=== PATIENT | female | born 1995 | race Caucasian/White ===

== ENCOUNTER 2022-04-30 18:52 | Observation (INO) | payer MEDICAID, SELFPAY ==
[2022-04-30 18:53] VITALS: BP 103/73; PULSE 85; RESP 16; TEMP 36.4; O2SAT 98; BMI 26.7
--- NOTE | 2022-04-30 19:04 | EX.ED.SAOD ---
HPI History of Present Illness Chief Complaint: Substance Abuse Informant: patient Narrative Narrative: Patient seeking detox from IV opiates, has been using daily for the last 2.5 months. Here with her significant other who has been using for longer. She denies any suicidality, recent illness, injury. She is feeling some mild withdrawal symptoms, feeling like she is sweating, last use was this morning around 10 hours ago. She denies using other substances. No that she knows of. [facility] Medical History (Updated 04/30/22 @ 19:[address] Arthur Whitlock MD) Opiate abuse, continuous Home Medications venlafaxine 37.5 mg tablet 37.5 mg PO DAILY 04/30/22 [History Last Taken Unknown] Allergy/AdvReac Type Severity Reaction Status Date / Time No Known Allergies Allergy Verified 04/30/22 18:55 Social History (Updated 04/30/22 @ 19:[address] Arthur Whitlock MD) Smoking Status: Current some day smoker tobacco type: cigarettes substance use type: heroin and IV drugs ROS ROS ED Constitutional Constitutional ED: Reports sweats; Denies chills or fever(s) Eyes Eyes: Denies change in vision or diplopia ENT ENT ED: Denies rhinorrhea or sore throat Cardiovascular Cardiovascular: Denies chest pain or palpitations Respiratory/Chest Respiratory/Chest: Denies cough or dyspnea Gastrointestinal Gastrointestinal: Denies abdominal pain, diarrhea, nausea or vomiting Genitourinary Genitourinary ED: Denies dysuria or hematuria Musculoskeletal Musculoskeletal: Denies back pain or neck pain Integumentary Denies abscess or rash Neurologic Neurologic: Denies headache(s), paresthesias or weakness Psychiatric Psychiatric: Reports anxiety; Denies suicidal thoughts EXAM Physical Exam Const Vital Signs: 04/30/22 18:53 04/30/22 19:47 Temperature 97.5 F L 98.5 F Temperature Source Temporal Oral Pulse Rate 85 65 Respiratory Rate 16 16 Blood Pressure 103/73 99/61 Blood Pressure Mean 83 73 Pulse Ox 98 96 Oxygen Delivery Method Room Air Room Air Positive well nourished and well developed General Appearance ED: well developed and NAD HEENT Reports moist mucous membranes normocephalic and atraumatic Eyes PERRL and EOMs intact bilaterally Neck full ROM and supple Resp normal respiratory effort and clear to auscultation bilaterally Cardio regular rate, regular rhythm and no murmurs Rate: Negative for tachycardic GI non-tender and non-distended Auscultation: normoactive bowel sounds Palpation: soft Back/Spine no CVA tenderness General Back: other FROM Extremity normal to inspection General Extremety ED: Negative for edema, pulses abnormal or tenderness General Extremity: Negative for edema or pulses abnormal Neuro oriented x3, CN's II-XII intact bilaterally and no sensory deficits noted Sensorium / Orientation: awake and alert Motor Exam: strength 5/5 throughout Skin no rashes or lesions noted and no wounds MDM MDM Lab Data Attestation: I reviewed the patient's lab results. Labs: Laboratory Results - last 24 hr 04/30/22 04/30/22 04/30/22 19:15 19:15 19:15 WBC 7.0 RBC 4.81 Hgb 13.7 Hct 41.1 MCV 85.4 MCH 28.5 MCHC 33.3 RDW Std Deviation 36.8 RDW Coeff of Margaret 11.8 Plt Count 212 MPV 10.3 Immature Gran % (Auto) 0.300 Neut % (Auto) 57.6 Lymph % (Auto) 29.9 [place] % (Auto) 7.6 Eos % (Auto) 4.3 Baso % (Auto) 0.3 Absolute Neuts (auto) 4.0 Absolute Lymphs (auto) 2.08 Nucleated RBC % 0 Sodium 139 Potassium 3.9 Chloride 104 Carbon Dioxide 28.0 Anion Gap 7 BUN 16 Creatinine 0.67 Estim Creat Clear Calc 90.59 Est GFR (MDRD) Af Amer 135 Est GFR (MDRD) Non-Af 111 BUN/Creatinine Ratio 23.8 H Glucose 97 Calcium 9.2 Total Bilirubin 0.40 AST 20 ALT 25 Alkaline Phosphatase 75 Total Protein 7.8 Albumin 3.8 Globulin 4.0 Albumin/Globulin Ratio 1.0 Serum , Qual Urine Opiates Screen Urine Methadone Screen Ur Barbiturates Screen Ur Phencyclidine Scrn Ur Amphetamines Screen MDMA (Ecstasy) Screen U Benzodiazepines Scrn Urine Cocaine Screen U Cannabinoids Screen Ur Drug Screen Comment Ethyl Alcohol < 3.0 04/30/22 04/30/22 19:15 19:15 WBC RBC Hgb Hct MCV MCH MCHC RDW Std Deviation RDW Coeff of Margaret Plt Count MPV Immature Gran % (Auto) Neut % (Auto) Lymph % (Auto) Graham % (Auto) Eos % (Auto) Baso % (Auto) Absolute Neuts (auto) Absolute Lymphs (auto) Nucleated RBC % Sodium Potassium Chloride Carbon Dioxide Anion Gap BUN Creatinine Estim Creat Clear Calc Est GFR (MDRD) Af Amer Est GFR (MDRD) Non-Af BUN/Creatinine Ratio Glucose Calcium Total Bilirubin AST ALT Alkaline Phosphatase Total Protein Albumin Globulin Albumin/Globulin Ratio Serum , Qual NEGATIVE Urine Opiates Screen POSITIVE H Urine Methadone Screen NEGATIVE Ur Barbiturates Screen NEGATIVE Ur Phencyclidine Scrn NEGATIVE Ur Amphetamines Screen NEGATIVE MDMA (Ecstasy) Screen POSITIVE H U Benzodiazepines Scrn NEGATIVE Urine Cocaine Screen NEGATIVE U Cannabinoids Screen POSITIVE H Ur Drug Screen Comment Ethyl Alcohol Discharge Plan Dx/Rx/DC Orders Clinical Impression: Opiate dependence Disposition Disposition: Acute Care Hospital [facility]
[2022-04-30 19:25] LABS: Absolute Lymphocyte Count 2.08 X10^3/uL (0.83-4.51); Basophil# 0.02 X10^3/uL; Basophil% 0.3 % (0-1); Eosinophils% 4.3 % (0-5); Hematocrit 41.1 % (37-47); Hemoglobin 13.7 g/dL (12.0-15.0); Lymphocyte # 2.08 X10^3/ul (0.83-4.51); Lymphocyte % 29.9 % (19-41); Mean Corp Hgb Conc 33.3 g/dL (32-36); Mean Corpuscular Hgb 28.5 pg (27.0-32.0); Mean Corpuscular Volume 85.4 fL (81-99); Mean Platelet Vol. 10.3 fl (6.2-12.0); Monocyte# 0.53 X10^3/uL; Monocyte% 7.6 % (0-10); NRBC Flagged by Analyzer 0 % (0-5); Neutrophil % 57.6 % (47-70); Platelet Count 212 K/mm3 (150-450); RBC Distribution Width CV 11.8 % (11.6-14.6); RBC Distribution Width SD 36.8 fl (35.1-43.9); Red Blood Count 4.81 M/mm3 (4.2-5.4)
[2022-04-30 19:47] VITALS: BP 99/61; PULSE 65; RESP 16; TEMP 36.9; O2SAT 96
[2022-04-30 19:47] LABS: Alcohol, Blood (Medical)-Serum < 3.0 mg/dL
[2022-04-30 19:52] LABS: AST(SGOT) 20 U/L (15-37); Alanine Aminotransfer ALT/SGPT 25 U/L (13-56); Albumin, Serum 3.8 g/dL (3.2-5.0); Alkaline Phosphatase 75 U/L (45-117); Anion Gap 7 (5-15); BUN 16 mg/dL (7-18); BUN/Creat Ratio 23.8 RATIO (10-20); Calcium,Total 9.2 mg/dL (8.5-10.1); Chloride 104 mmol/L (98-107); Creatinine, Serum 0.67 mg/dL (0.55-1.02); EST Glomerular Filtration Rate 111 mL/min (>60); Est Glom Filt Rate - Afr Amer 135 mL/min (>60); Estimated Creatinine Clearance 90.59 ml/min; Glucose 97 mg/dL (74-106); Potassium 3.9 mmol/L (3.5-5.1); Protein, Total 7.8 g/dL (6.4-8.2); Sodium Level 139 mmol/L (136-145)
[2022-04-30 20:00] LABS: Amphetamine Urine VISTA NEGATIVE (<1000 ng/mL); Barbiturate Urine VISTA NEGATIVE (< 200 ng/mL); Benzodiazepine Urine VISTA NEGATIVE (< 200 ng/mL); Cocaine Urine VISTA NEGATIVE (< 300 ng/mL); Ecstacy Urine VISTA POSITIVE (< 500 ng/mL); Methadone Urine VISTA NEGATIVE (< 300 ng/mL); PCP Urine VISTA NEGATIVE (< 25 ng/mL); THC Urine VISTA POSITIVE (< 50 ng/mL); Vista UDS pH Range 5
[2022-04-30 20:06] LABS: Internal QC Validated? YES +Cl - CLEAR BKGD; Pregnancy, Serum, hCG Quali. NEGATIVE Negative
--- NOTE | 2022-04-30 20:21 | PCM.HP.STD ---
HPI - General General Date of Admission: 04/30/22 Date of Service: 04/30/22 Chief Complaint: Desire for detoxification HPI Narrative DIANNE POE, is a 26 F with a significant history of tobacco abuse; marijuana abuse; migraine headaches; depression; and anxiety who presents to the emergency department with help for opioid detoxification. Reportedly patient has been abusing opioids on and off for about 10 years. Her drug of choice is fentanyl that she shoots. She use about half a gram to a gram per day. She resumed using opioids about 2 months ago. Last time she used was about 8 and half hours prior to presentation. Patient reports mild withdrawal symptoms of feeling hot and diaphoresis. Patient is here for joint detoxification with her fianc?. [facility] Medical History Opiate abuse, continuous Home Medications venlafaxine 37.5 mg tablet 37.5 mg PO DAILY 04/30/22 [History Last Taken Unknown] Allergy/AdvReac Type Severity Reaction Status Date / Time No Known Allergies Allergy Verified 04/30/22 18:55 Family History (Updated 04/30/22 @ 20:[address] Artemio Collins MD) Other ALS (amyotrophic lateral sclerosis) Heart disease Hypertension no surgical history Social History Smoking Status: Current some day smoker tobacco type: cigarettes substance use type: heroin and IV drugs ROS ROS Narrative Pertinent positives and pertinent negatives as noted in HPI. All other systems were reviewed and are negative Vital Signs Vital Signs Vital Signs: 04/30/22 18:53 04/30/22 19:47 Temperature 97.5 F L 98.5 F Temperature Source Temporal Oral Pulse Rate 85 65 Respiratory Rate 16 16 Blood Pressure 103/73 99/61 Blood Pressure Mean 83 73 Pulse Ox 98 96 Oxygen Delivery Method Room Air Room Air Weight Weight: 62.142 kg Body Mass Index (BMI) 26.7 Physical Exam Narrative Physical exam: General: Well-nourished, well-developed. Head: Normocephalic, atraumatic, no tenderness Eyes: Vision is grossly intact. EOMI ENT, no trauma, moist mucous membranes, no rhinorrhea Neck: Nontender, full range of motion, no spinal tenderness, deformities, step-off CVS: Regular rate and rhythm. S1-S2 present. No murmur, gallop or rub. Respiratory : clear to auscultation bilaterally, chest wall nontender, no wheezing Abdomen: Soft, nontender, nondistended, normal bowel sounds, no masses : Deferred Back: Nontender, no CVA tenderness, no midline spinal tenderness, deformities, step-offs Extremities: Nontender full range of motion, no trauma Skin: Normal color, no trauma, abrasions Neuro: Alert, oriented, cranial nerves II through XII grossly intact. Psychiatry: Normal mood. Normal affect. Not depressed. Not anxious. Results Lab / Micro Data Result Diagrams: 04/30/22 19:15 04/30/22 19:15 Labs: Laboratory Results - last 24 hr 04/30/22 19:15: WBC 7.0, RBC 4.81, Hgb 13.7, Hct 41.1, MCV 85.4, MCH 28.5, MCHC 33.3, RDW Std Deviation 36.8, RDW Coeff of Margaret 11.8, Plt Count 212, MPV 10.3, Immature Gran % (Auto) 0.300, Neut % (Auto) 57.6, Lymph % (Auto) 29.9, [place] % (Auto) 7.6, Eos % (Auto) 4.3, Baso % (Auto) 0.3, Absolute Neuts (auto) 4.0, Absolute Lymphs (auto) 2.08, Nucleated RBC % 0 04/30/22 19:15: Sodium 139, Potassium 3.9, Chloride 104, Carbon Dioxide 28.0, Anion Gap 7, BUN 16, Creatinine 0.67, Estim Creat Clear Calc 90.59, Est GFR (MDRD) Af Amer 135, Est GFR (MDRD) Non-Af 111, BUN/Creatinine Ratio 23.8 H, Glucose 97, Calcium 9.2, Total Bilirubin 0.40, AST 20, ALT 25, Alkaline Phosphatase 75, Total Protein 7.8, Albumin 3.8, Globulin 4.0, Albumin/Globulin Ratio 1.0 04/30/22 19:15: Ethyl Alcohol < 3.0 04/30/22 19:15: Urine Opiates Screen POSITIVE H, Urine Methadone Screen NEGATIVE, Ur Barbiturates Screen NEGATIVE, Ur Phencyclidine Scrn NEGATIVE, Ur Amphetamines Screen NEGATIVE, MDMA (Ecstasy) Screen POSITIVE H, U Benzodiazepines Scrn NEGATIVE, Urine Cocaine Screen NEGATIVE, U Cannabinoids Screen POSITIVE H, Ur Drug Screen Comment 04/30/22 19:15: Serum , Qual NEGATIVE Assessment & Plan Assessment/Plan (1) Opiate dependence: (2) Tobacco abuse: PLAN: Plan Opioid dependence and withdrawal Urine toxicology was positive for opiates; ecstasy and cannabinoids. Patient be started on Subutex and other adjunctive medications: Gabapentin as needed; dicyclomine as needed; Vistaril as needed; methocarbamol as needed; clonidine as needed; Imodium as needed; trazodone as needed and Zofran as needed. Monitor COWS and CINA score Tobacco abuse Counseled Decline nicotine patch prescribed. Marijuana use Counseled. DVT prophylaxis Low risk Encourage to ambulate Charges/Coding Visit Charges Inpatient E&M: 48388 Init Hosp L2
[2022-04-30 21:25] VITALS: BMI 27.1
[2022-04-30 21:26] VITALS: BP 95/64; PULSE 60; RESP 18; TEMP 36.2; O2SAT 99
[2022-05-01] VITALS (8 sets, daily range): BP systolic 78–124; BP diastolic 42–81; PULSE 57–70; RESP 16–18; TEMP 36.4–37.1; O2SAT 96–100
[2022-05-01] MEDS: Senna/Docusate Sodium 1 Tablet 2 TABLET PO ×2 (05:30→16:35)
--- NOTE | 2022-05-01 07:23 | PN.HOSP_ITS ---
Subjective Subjective Feels unwell. Objective Data Objective Data Vital Signs: Vital Signs Temp Pulse Resp BP Pulse Ox O2 Del Method 37.1 C 61 16 89/52 L 97 Room Air 05/01/22 06:30 05/01/22 06:30 05/01/22 06:30 05/01/22 06:30 05/01/22 06:30 05/01/22 06:30 Oxygen Delivery Method Room Air Weight: 63 kg Body Mass Index (BMI) 27.1 Intake & Output: Intake and Output for Last 24 Hours 04/29/22 04/30/22 05/01/22 23:59 23:59 23:59 Output Total 0 / 0 Balance 0 / 0 Lab / Micro Data Result Diagrams: 04/30/22 19:15 04/30/22 19:15 Labs: Laboratory Results - last 24 hr 04/30/22 19:15: WBC 7.0, RBC 4.81, Hgb 13.7, Hct 41.1, MCV 85.4, MCH 28.5, MCHC 33.3, RDW Std Deviation 36.8, RDW Coeff of Margaret 11.8, Plt Count 212, MPV 10.3, Immature Gran % (Auto) 0.300, Neut % (Auto) 57.6, Lymph % (Auto) 29.9, [place] % (Auto) 7.6, Eos % (Auto) 4.3, Baso % (Auto) 0.3, Absolute Neuts (auto) 4.0, Absolute Lymphs (auto) 2.08, Nucleated RBC % 0 04/30/22 19:15: Sodium 139, Potassium 3.9, Chloride 104, Carbon Dioxide 28.0, Anion Gap 7, BUN 16, Creatinine 0.67, Estim Creat Clear Calc 90.59, Est GFR (MDRD) Af Amer 135, Est GFR (MDRD) Non-Af 111, BUN/Creatinine Ratio 23.8 H, Glucose 97, Calcium 9.2, Total Bilirubin 0.40, AST 20, ALT 25, Alkaline Phosphatase 75, Total Protein 7.8, Albumin 3.8, Globulin 4.0, Albumin/Globulin Ratio 1.0 04/30/22 19:15: Ethyl Alcohol < 3.0 04/30/22 19:15: Urine Opiates Screen POSITIVE H, Urine Methadone Screen NEGATIVE, Ur Barbiturates Screen NEGATIVE, Ur Phencyclidine Scrn NEGATIVE, Ur Amphetamines Screen NEGATIVE, MDMA (Ecstasy) Screen POSITIVE H, U Benzodiazepines Scrn NEGATIVE, Urine Cocaine Screen NEGATIVE, U Cannabinoids Screen POSITIVE H, Ur Drug Screen Comment 04/30/22 19:15: Serum , Qual NEGATIVE Physical Exam Const alert and no apparent distress Resp normal respiratory effort, no retractions and no use of accessory muscles Cardio regular rate, regular rhythm, S1 normal heart sound and S2 normal heart sound GI normal to inspection, nondistended, normoactive bowel sounds, soft to palpation and non-tender Assessment & Plan Assessment/Plan (1) Opiate dependence: PLAN: Opioid dependence and withdrawal Urine toxicology was positive for opiates; MDMA and cannabinoids. Patient be started on Subutex and other adjunctive medications: Gabapentin as needed; dicyclomine as needed; Vistaril as needed; methocarbamol as needed; clonidine as needed; Imodium as needed; trazodone as needed and Zofran as nee ded. Monitor COWS and CINA score Polysubstance abuse we will be complicating factor in regards to patient remaining sober. (2) Tobacco abuse: PLAN: Tobacco abuse Counseled Decline nicotine patch prescribed. PLAN: Plan DVT prophylaxis: not indicated as pt is low risk. Encourage to ambulate Charges/Coding Visit Charges Inpatient E&M: 72449 Subs Hosp L2
[2022-05-01] MEDS: Venlafaxine XR 37.5 MG Capsule PO (08:27)
--- NOTE | 2022-05-01 08:33 | CASEMGMT ---
DENY called [facility] duplication specialist. DENY let [facility] know that patient is here for RAMP program and is on PCU. [facility] will see patient today. Riya Pollack DELIVERY OF SHOPPING NEWSShayan MONAHAN
--- NOTE | 2022-05-01 10:27 | ADDICTION ---
This show card writer met with PT to conduct ASAM, MSE, AUDIT, DUDIT assessments and to plan for d/c. PT A+Ox4 and participated actively. All assessments completed and placed in PT's chart. PT plans to f/u with [facility] in [place] for outpatient treatment services and MAT. PT did not indicate a need for transportation post d/c from [facility].
--- NOTE | 2022-05-01 11:24 | CASEMGMT ---
Per Admission Questions patient does not have a Healthcare Power of Perioperative Assistant or Healthcare Living Will and is not interested in documents. 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
[2022-05-01] MEDS: Ensure Plus High Protein 120 ML LIQUID PO ×2 (11:28→16:25)
[2022-05-01] MEDS: Buprenorphine HCl 2 MG TAB.SUBL SL ×2 (11:46→20:01)
[2022-05-01] MEDS: Gabapentin 300 MG Capsule PO (16:35)
[2022-05-01] MEDS: traZODone 100 MG Tablet PO (21:50)
[2022-05-02 04:00] VITALS: BP 91/53; PULSE 68; RESP 16; TEMP 36.6; O2SAT 98
[2022-05-02] MEDS: Buprenorphine HCl 2 MG TAB.SUBL SL ×3 (04:25→20:43)
--- NOTE | 2022-05-02 07:31 | PN.HOSP_ITS ---
Subjective Subjective Still feels generally ill, though she is eating. Objective Data Objective Data Vital Signs: Vital Signs Temp Pulse Resp BP Pulse Ox O2 Del Method 36.6 C 68 16 91/53 L 98 Room Air 05/02/22 04:00 05/02/22 04:00 05/02/22 04:00 05/02/22 04:00 05/02/22 04:00 05/02/22 04:00 Oxygen Delivery Method Room Air Weight: 63 kg Body Mass Index (BMI) 27.1 Intake & Output: Intake and Output for Last 24 Hours 04/30/22 05/01/22 05/02/22 23:59 23:59 23:59 Intake Total 480 / 480 Output Total 0 / 0 Balance 480 / 480 Lab / Micro Data Result Diagrams: 04/30/22 19:15 04/30/22 19:15 Physical Exam Const alert and no apparent distress HEENT head/scalp atraumatic and moist oral mucous membranes Resp normal respiratory effort, no retractions, no use of accessory muscles and clear to auscultation bilaterally Cardio regular rate, regular rhythm, S1 normal heart sound and S2 normal heart sound GI normal to inspection, nondistended, normoactive bowel sounds Assessment & Plan Assessment/Plan (1) Opiate dependence: PLAN: Opioid dependence and withdrawal Urine toxicology was positive for opiates; MDMA and cannabinoids. Patient be started on Subutex and other adjunctive medications: Gabapentin as needed; dicyclomine as needed; Vistaril as needed; methocarbamol as needed; clonidine as needed; Imodium as needed; trazodone as needed and Zofran as needed. Monitor COWS and CINA score Polysubstance abuse we will be complicating factor in regards to patient remaining sober. Met with Addiction Med: pt to follow up with [facility] in [place] for IOP and MAT. (2) Tobacco abuse: PLAN: Tobacco abuse Counseled Decline nicotine patch prescribed. PLAN: Plan DVT prophylaxis: not indicated as pt is low risk. Encourage to ambulate Disposition: anticipate pt to be discharged 05/03 after she has completed the buprenorphine taper Charges/Coding Visit Charges Inpatient E&M: 09034 [facility] Hosp L1
[2022-05-02] MEDS: Venlafaxine XR 37.5 MG Capsule PO (09:44)
[2022-05-02 10:00] VITALS: BP 106/76; PULSE 66; RESP 18; TEMP 36.8; O2SAT 96
[2022-05-02] MEDS: Ensure Plus High Protein 120 ML LIQUID PO (11:38)
[2022-05-02 16:00] VITALS: BP 113/78; PULSE 70; RESP 18; TEMP 37.1; O2SAT 95
[2022-05-02] MEDS: Gabapentin 300 MG Capsule PO (16:22)
[2022-05-02 20:28] VITALS: BP 116/81; PULSE 84; RESP 16; TEMP 37.1; O2SAT 98
[2022-05-02] MEDS: traZODone 100 MG Tablet PO (21:16)
[2022-05-03 03:16] VITALS: BP 93/63; PULSE 66; RESP 18; TEMP 36.4; O2SAT 95
[2022-05-03] MEDS: Buprenorphine HCl 2 MG TAB.SUBL SL ×2 (04:35→12:50)
[2022-05-03 08:45] VITALS: BP 93/57; PULSE 64; RESP 18; TEMP 36.8; O2SAT 97
--- NOTE | 2022-05-03 09:25 | PCM.DC ---
Discharge Instructions Diet Discharge Diet: No restrictions Activity Discharge Activity: Return to Normal Activity Follow Up Care Test Results: Test results from this visit will be discussed in further detail at your follow-up appointment, if applicable. Discharge Plan Admission Admit Date/Time: 04/30/22 20:18 Primary Reason for Your Visit: opiate withdrawal Attending Provider: Jose Zabala Primary Care Provider: Audrey Silvestre Consulting Providers: Artemio Collins Instructions Additional Instructions / Restrictions: Follow up with [facility] in [place] for IOP and MAT. Discharge Orders/Prescriptions Prescriptions: Continued venlafaxine 37.5 mg Tablet 37.5 mg PO DAILY Referrals / Follow Up: Audrey Silvestre MD [Primary Care Provider] - Disposition Disposition (needs filled in before D/C Order can be placed): Home, Self Care
--- NOTE | 2022-05-03 09:26 | DS.PCM_ITS ---
Providers Date of Admission: 04/30/22 Primary Care Physician: Dr. Audrey Silvester MD Reason For Visit: DESIRE FOR DETOXIFICATION Diagnosis Discharge Diagnosis (1) Opiate dependence: Status: Acute Code(s): F11.20 - Opioid dependence, uncomplicated (2) Tobacco abuse: Status: Acute Code(s): Z72.0 - Tobacco use Medications at Discharge Home Medications venlafaxine 37.5 mg tablet 37.5 mg PO DAILY mirgaines 04/30/22 Hospital Course Operations None Procedures None Summary of Care Provided Minutes Spent on Discharge: 24 Hospital Course: 6-year-old female presents seeking treatment for opiate withdrawal. Patient used IV fentanyl. Patient was started on buprenorphine taper and course was uncomplicated. Patient his feel ill for the first 2 days but is overall feeling better. Patient will be following with [facility] in [place] to continue with treatments. And is here with her fianc?. Physical Exam Const alert and no apparent distress General Appearance: cooperative Weight / BMI Weight Weight: 63 kg Body Mass Index (BMI) 27.1 ABG / Lab / Microbiology Data Result Diagrams: 04/30/22 19:15 04/30/22 19:15 D/C Instructions Discharge Diet: No restrictions Meaningful Use Info Meaningful Use Diagnoses (Choose all that apply): None applicable Discharge Plan Admission Admit Date/Time: 04/30/22 20:18 Primary Reason for Your Visit: opiate withdrawal Attending Provider: Jose Zabala Primary Care Provider: Audrey Silvestre Consulting Providers: Artemio Collins Instructions Additional Instructions / Restrictions: Follow up with [facility] in [place] for IOP and MAT. Discharge Orders/Prescriptions Prescriptions: Continued venlafaxine 37.5 mg Tablet 37.5 mg PO DAILY Referrals / Follow Up: Audrey Silvestre MD [Primary Care Provider] - Disposition Disposition (needs filled in before D/C Order can be placed): Home, Self Care Charges/Coding Visit Charges Inpatient E&M: 07507 Disch Hosp
--- NOTE | 2022-05-03 09:37 | PHA.DC.MR ---
Pharmacy Service has performed discharge medication reconciliation for this patient. The patient's discharge medication list was reviewed for discrepancies and discrepancies were resolved. Home Medications venlafaxine 37.5 mg tablet 37.5 mg PO DAILY leny 04/30/22
[2022-05-03 12:00] VITALS: BP 110/70; PULSE 82; RESP 18; TEMP 36.2; O2SAT 98
[2022-05-03] MEDS: Venlafaxine XR 37.5 MG Capsule PO (12:50)
== END 2022-05-03 13:53 | disposition home or self-care (01) ==
LOC: ED 19:54 → PCU 05-01 04:27
PROVIDERS: Admitting Provider Hospitalist; Emergency Provider Emergency Medicine; PCP Student in an Organized Health Care Education/Training Program
DX: F11.23 Opioid dependence with withdrawal (principal); F17.210 Nicotine dependence, cigarettes, uncomplicated; G43.909 Migraine, unspecified, not intractable, without status migrainosus; F12.10 Cannabis abuse, uncomplicated; Z79.899 Other long term (current) drug therapy
CPT/HCPCS: 80053; 80307; 82077; 84703; 85025; 97802; 99283; 99406; H0012